=== PATIENT | male | born 1990 | race Hispanic/Latino ===

== ENCOUNTER 2019-03-08 22:25 | Emergency (ER) | payer MEDICAID, OTHER ==
[2019-03-08] MEDS ORDERED: IBUPROFEN 600 MG TABLET ONE (22:52)
== END 2019-03-09 00:09 | disposition home or self-care (01) ==
LOC: EDH 22:25
DX: S90.32XA Contusion of left foot, initial encounter (principal); L84 Corns and callosities; Z72.0 Tobacco use; W22.8XXA Striking against or struck by other objects, initial encounter; Y93.89 Activity, other specified; Y92.69 Other specified industrial and construction area as the place of occurrence of the external cause; Y99.8 Other external cause status
CPT/HCPCS: 73630; 82948

== ENCOUNTER 2025-02-09 02:07 | Emergency (ER) | payer SELFPAY ==
[~2025-02-09] VITALS: Ht 182.9 cm; Wt 142.0 kg
[2025-02-09] MEDS ORDERED: KETO10TA2 PO (02:45)
[2025-02-09] MEDS ORDERED: AMOX1TAB16 PO (02:45)
--- NOTE | 2025-02-09 02:46 | ERN ---
General Chief Complaint: Tooth Ache/Pain Stated Complaint: LEFT LOWER BROKEN TOOTH Time Seen by MD: 02:08 Time Seen by Midlevel: 02:08 Source: patient History of Present Illness Initial Comments Patient is a 34-year-old male presenting to the emergency department for evaluation of left-sided dental pain. The patient states he was had a cracked tooth per proximally three months but today he developed sharp pain to the area. Has not seen a dentist for this issue. Allergies: Coded Allergies: No Known Drug Allergies (Unverified Allergy, Unknown, 03/09/19) Past Medical History Past Medical History: No Pertinent History Past Surgical History: None ROS Dictation CONSTITUTIONAL: Negative except for HPI HEAD/FACE: Negative except for HPI EENT: Negative except for HPI RESPIRATORY: Negative except for HPI GASTROINTESTINAL/ABDOMINAL: Negative except for HPI GENITOURINARY: Negative except for HPI MUSCULOSKELETAL: Negative except for HPI INTEGUMENTARY: Negative except for HPI NEUROLOGICAL/PSYCH: Negative except for HPI HEMATOLOGIC/LYMPHATIC: Negative except for HPI All Systems Negative, Except as noted above. 13 point review of systems assessed and all negative except for above. Physical Exam Physical Exam Dictation PHYSICAL EXAM: GENERAL: alert,, awake oriented x 3 HEENT: EOMI, Sclera non icteric, moist mucosa NECK: Supple, no JVD, trachea midline LUNGS: Clear breath sounds bilaterally. No wheezes HEART: Regular rate and rhythm. Normal S1 and S2, without murmurs ABD: Abdomen soft, nontender. Bowel sounds present EXT: No clubbing or cyanosis, NEURO: Alert and oriented to person, follows commands MDM MDM: Differential diagnosis: Dental abscess, dental pain, dental caries There are no social concerns with this patient. Prescription drug management Prescriptions will include: Augmentin and Toradol Medical management and examination interpretation discussions were had by me with other qualified healthcare professionals as indicated for the patient's c are. ED Course Orders Procedure Category Date Status Time Dexamethasone 4mg/Ml PHA 02/09/25 Complete 1ml Vial (Dexametha 02:30 Ketorolac PHA 02/09/25 Complete Tromethamine 15mg/Ml 02:30 Hydrocodone/Apap PHA 02/09/25 Complete 5/325 ([place] 5/325mg) 02:30 Current Medications Medications (Trade) Dose Ordered Sig/Dhaval Route PRN Reason Start Time Stop Time Status Last Admin Dose Admin Acetaminophen/ Hydrocodone Bitart (NORco 5/325MG) 1 tab ONCE ONCE PO 02/09/25 02:30 02/09/25 02:31 DC Dexamethasone Sodium Phosphate (dexaMETHasone 4MG/ML 1ML VIAL) 10 mg ONCE ONCE IV 02/09/25 02:30 02/09/25 02:31 DC Ketorolac Tromethamine (toRADol) 15 mg ONCE ONCE IV 02/09/25 02:30 02/09/25 02:31 DC Vital Signs Date Time Temp Pulse Resp B/P (MAP) Pulse Ox O2 Delivery O2 Flow Rate FiO2 02/09/25 02:08 98.1 82 18 151/76 97 Room Air DX & DISP Disposition: Discharge Departure Impression: Primary Impression: Pain, dental Condition: Stable Scripts Amoxicillin/Potassium Clav (Amox Tr-K Clv 875-125 mg Tab) 875 Mg-125 Mg Tablet 1 EACH PO BID for 7 Days, #14 TAB 0 Refills Prov: SHELBY HERRON 02/09/25 Ketorolac Tromethamine (Ketorolac Tromethamine) 10 Mg Tablet 1 TAB PO TID for pain for 5 Days, #15 TAB 0 Refills Prov: SHELBY HERRON 02/09/25 Additional Instructions: You were given pain medication in the emergency department. You need to see a dentist as soon as possible. Referrals: SELF,REFERRAL (PCP) Time of Disposition: 02:44 I have reviewed the case, and I agree with, Diagnosis and Plan I performed the substantive portion of the visit. I have reviewed and personally made and approve the management plan that is documented in the note by myself or the BLANKA. I acknowledge for responsibility for the patient's m anagement plan. SHELBY HERRON Feb 09, 2025 02:46
[2025-02-09] MEDS: HYDROcodone/APAP 5/325 1 TAB TABLET PO ONE (02:49)
[2025-02-09 02:58] VITALS: BP 143/81; PULSE 86; RESP 19; TEMP 98.1; O2SAT 99
== END 2025-02-09 03:02 | disposition home or self-care (01) ==
LOC: EDH 02:07
DX: K08.89 Other specified disorders of teeth and supporting structures (principal)
CPT/HCPCS: 99284; 96374; 96375; J1100; J1885